=== PATIENT | male | born 1960 | race Caucasian/White ===

== ENCOUNTER → 2020-08-05 | Emergency (ER) | payer SELFPAY ==
[~2020-08-05] VITALS: Ht 172.7 cm; Wt 72.6 kg
[2020-08-05 12:03] VITALS: BP 109/65
--- NOTE | 2020-08-05 12:04 | NUR ---
BIBA TAKEN TO BED 11
--- NOTE | 2020-08-05 12:05 | NUR ---
59/M biba with c/o of generalized weakness. Per EMS patient was found in an abandoned warehouse where he states he was trying to sleep. Per EMS, patient was altered when PD was on scene, upon EMS arrival patient stated he did not feel well and was in pain. Patient denies pain upon arrival, admits to inhaling unknown substance this morning and states "I'm just sleepy". Patient is alert and oriented x4 and is able to answer all questions.
--- NOTE | 2020-08-05 12:30 | NUR ---
Patient discharged with v/s stable. Written and verbal after care instructions given and explained. Patient verbalized understanding. Ambulatory with steady gait. All questions addressed prior to discharge. Advised to follow up with PMD. Given list of available shelters in surrounding areas, provided with food and a bus pass.
[2020-08-05 12:35] VITALS: BP 109/65
== END | disposition home or self-care (01) ==
LOC: MED 12:00
DX: R53.1 Weakness (principal); F19.10 Other psychoactive substance abuse, uncomplicated; R42 Dizziness and giddiness; F20.9 Schizophrenia, unspecified; F17.200 Nicotine dependence, unspecified, uncomplicated; F12.90 Cannabis use, unspecified, uncomplicated
CPT/HCPCS: 99283